=== PATIENT | male | born 1955 | race Caucasian/White ===

== ENCOUNTER → 2020-05-07 | Outpatient (CLI) | payer MEDICARE, OTHER, BC ==
[~2020-05-07] MED LIST: ASPIRIN EC81 MG PO; CATAPRES 0.1MG0.1 MG PO; COZAAR100 MG PO; CYCLOBENZAPRINE5 MG PO; FLOMAX 0.4 MG0.4 MG PO; HYDRALAZINE HCL50 MG PO; IBUPROFEN800 MG PO; LEVOTHYROXINE50 MC1 PO; MOBIC15 MG PO; NASAL SPRAY30 M2; NEURONTIN300 MG PO; OMEPRAZOLE20 MG PO; ONE-A-DAY MEN'1 EAC3 PO
== END ==
LOC: RAD 12:03
DX: G56.03 Carpal tunnel syndrome, bilateral upper limbs (principal); M79.641 Pain in right hand; M79.642 Pain in left hand; F44.4 Conversion disorder with motor symptom or deficit; G25.0 Essential tremor; R93.6 Abnormal findings on diagnostic imaging of limbs; M19.032 Primary osteoarthritis, left wrist
CPT/HCPCS: 73100

== ENCOUNTER 2020-07-12 20:22 | Observation (INO) | payer MEDICARE, OTHER ==
[~2020-07-12] VITALS: Ht 180.3 cm; Wt 114.5 kg
[2020-07-12 21:05] LABS: HEMOGLOBIN 16.9 gm/dl (14.0-17.5); RED BLOOD COUNT 5.2 M/UL (4.20-5.50); WHITE BLOOD COUNT 5.6 K/UL (4.5-11.0)
[2020-07-12 21:24] LABS: BUN/CREATININE RATIO 15 (0-10)
[2020-07-13] MEDS ORDERED: LEVOTHYROXINE50 MC1 PO (04:35)
[2020-07-13] MEDS ORDERED: COZAAR100 MG PO (04:35)
[2020-07-13] MEDS ORDERED: NEURONTIN300 MG PO (04:36)
[2020-07-13] MEDS ORDERED: NASAL SPRAY30 M2 (04:36)
[2020-07-13] MEDS ORDERED: FLOMAX 0.4 MG0.4 MG PO (04:37)
[2020-07-13] MEDS ORDERED: ASPIRIN EC81 MG PO (04:37)
[2020-07-13] MEDS ORDERED: OMEPRAZOLE20 MG PO (04:37)
[2020-07-13] MEDS ORDERED: IBUPROFEN800 MG PO (04:38)
[2020-07-13] MEDS ORDERED: ONE-A-DAY MEN'1 EAC3 PO (04:38)
[2020-07-13 05:48] LABS: HEMOGLOBIN 16.7 gm/dl (14.0-17.5); RED BLOOD COUNT 5.15 M/UL (4.20-5.50); WHITE BLOOD COUNT 4.9 K/UL (4.5-11.0)
[2020-07-13 06:09] LABS: BUN/CREATININE RATIO 13 (0-10)
[2020-07-13] MEDS ORDERED: HYDRALAZINE HCL50 MG PO (18:12)
== END 2020-07-13 19:07 | disposition home or self-care (01) ==
LOC: ER1 20:22 → CDU 07-13 00:41 → PROG CARE 07-13 00:41 → M/S 07-13 13:00
PROVIDERS: Physician Assistant; ADMIT Internal Medicine
DX: R07.89 Other chest pain (principal); I16.0 Hypertensive urgency; E87.6 Hypokalemia; K21.9 Gastro-esophageal reflux disease without esophagitis; N40.0 Benign prostatic hyperplasia without lower urinary tract symptoms; J30.2 Other seasonal allergic rhinitis; E66.9 Obesity, unspecified; I10 Essential (primary) hypertension; E03.9 Hypothyroidism, unspecified; E78.5 Hyperlipidemia, unspecified; Z20.822 Contact with and (suspected) exposure to COVID-19; Z98.890 Other specified postprocedural states; Z83.3 Family history of diabetes mellitus; Z79.82 Long term (current) use of aspirin; Z79.899 Other long term (current) drug therapy
CPT/HCPCS: ECHO; 71045; 80048; 80053; 82550; 82553; 83036; 83735; 83874; 83880; 84439; 84443; 84484; 84550; 85025; 85379; 93005; 93306; 96372; 96374; 96375; 96376; 99285; G0378; J1650; J1940; U0002

== ENCOUNTER 2020-07-18 14:45 | Emergency (ER) | payer MEDICARE, OTHER ==
[~2020-07-18 14:45] MED LIST changes: -CATAPRES 0.1MG0.1 MG PO; -CYCLOBENZAPRINE5 MG PO; -MOBIC15 MG PO
[2020-07-18 16:57] LABS: HEMOGLOBIN 17.2 gm/dl (14.0-17.5); RED BLOOD COUNT 5.27 M/UL (4.20-5.50); WHITE BLOOD COUNT 5.3 K/UL (4.5-11.0)
[2020-07-18 17:31] LABS: BUN/CREATININE RATIO 15 (0-10)
[2020-07-18] MEDS ORDERED: CATAPRES 0.1MG0.1 MG PO (18:08)
== END 2020-07-18 19:00 | disposition home or self-care (01) ==
LOC: ER1 14:45
PROVIDERS: Physician Assistant
DX: I10 Essential (primary) hypertension (principal); K21.9 Gastro-esophageal reflux disease without esophagitis; E03.9 Hypothyroidism, unspecified
CPT/HCPCS: 80053; 84439; 84443; 84484; 85025; 93005; 96374; 99283; J0360

== ENCOUNTER 2020-07-22 03:09 | Emergency (ER) | payer MEDICARE, OTHER ==
[~2020-07-22 03:09] MED LIST changes: +CATAPRES 0.1MG0.1 MG PO
[2020-07-22 04:18] LABS: HEMOGLOBIN 15.8 gm/dl (14.0-17.5); RED BLOOD COUNT 4.89 M/UL (4.20-5.50); WHITE BLOOD COUNT 4.7 K/UL (4.5-11.0)
[2020-07-22 04:47] LABS: BUN/CREATININE RATIO 13 (0-10)
== END 2020-07-22 05:38 | disposition home or self-care (01) ==
LOC: ER1 03:09
PROVIDERS: Family Medicine
DX: I10 Essential (primary) hypertension (principal); E03.9 Hypothyroidism, unspecified; R79.89 Other specified abnormal findings of blood chemistry
CPT/HCPCS: 80053; 82550; 82553; 83874; 84484; 85025; 93005; 99283

== ENCOUNTER 2020-10-17 13:41 | Emergency (ER) | payer MEDICARE, OTHER ==
[2020-10-17] MEDS ORDERED: MOBIC15 MG PO (15:58)
[2020-10-17] MEDS ORDERED: CYCLOBENZAPRINE5 MG PO (15:58)
== END 2020-10-17 16:12 | disposition home or self-care (01) ==
LOC: ER1 13:41
DX: S86.912A Strain of unspecified muscle(s) and tendon(s) at lower leg level, left leg, initial encounter (principal); I10 Essential (primary) hypertension; E03.9 Hypothyroidism, unspecified; W01.0XXA Fall on same level from slipping, tripping and stumbling without subsequent striking against object, initial encounter; Y92.009 Unspecified place in unspecified non-institutional (private) residence as the place of occurrence of the external cause
CPT/HCPCS: 29530; 73552; 99283

== ENCOUNTER → 2020-10-21 | Outpatient (CLI) | payer MEDICARE, OTHER ==
[~2020-10-21] MED LIST changes: +CYCLOBENZAPRINE5 MG PO; +MOBIC15 MG PO; +VIBRAMYCIN 100100 MG PO
== END ==
LOC: EMI 16:35
DX: S76.112A Strain of left quadriceps muscle, fascia and tendon, initial encounter (principal)
CPT/HCPCS: 73721

== ENCOUNTER 2020-12-19 15:51 | Emergency (ER) | payer MEDICARE, OTHER ==
[~2020-12-19 15:51] MED LIST changes: -VIBRAMYCIN 100100 MG PO
[2020-12-19] MEDS ORDERED: VIBRAMYCIN 100100 MG PO (21:05)
== END 2020-12-19 21:25 | disposition home or self-care (01) ==
LOC: ER1 15:51
DX: T81.31XA Disruption of external operation (surgical) wound, not elsewhere classified, initial encounter (principal); I10 Essential (primary) hypertension; E03.9 Hypothyroidism, unspecified
CPT/HCPCS: 12002; 29530; 73564; 99283

== ENCOUNTER 2021-05-11 07:44 | Emergency (ER) | payer OTHER ==
[~2021-05-11 07:44] MED LIST changes: +VIBRAMYCIN 100100 MG PO
== END 2021-05-11 09:58 | disposition home or self-care (01) ==
LOC: ER1 07:44
DX: S66.912A Strain of unspecified muscle, fascia and tendon at wrist and hand level, left hand, initial encounter (principal); S00.01XA Abrasion of scalp, initial encounter; M50.30 Other cervical disc degeneration, unspecified cervical region; Z23 Encounter for immunization; I10 Essential (primary) hypertension; W19.XXXA Unspecified fall, initial encounter
CPT/HCPCS: 70450; 72125; 73110; 90471; 90715; 99284

== ENCOUNTER 2021-11-06 03:09 | Emergency (ER) | payer MEDICARE, OTHER ==
[~2021-11-06 03:09] MED LIST changes: +CLARITIN5 MG PO; +FISH OIL; +HYDRALAZINE HC100 MG PO; +HYDROCHLOROTH12.5 MG PO; +VITAMIN B6
[2021-11-06 04:10] LABS: HEMOGLOBIN 17.4 gm/dl (14.0-17.5); RED BLOOD COUNT 5.41 M/UL (4.20-5.50); WHITE BLOOD COUNT 8.6 K/UL (4.5-11.0)
[2021-11-06 05:03] LABS: BUN/CREATININE RATIO 21 (0-10)
[2021-11-06] MEDS ORDERED: HYDROCODON-ACE1 EAC4 PO (06:35)
[2021-11-06] MEDS ORDERED: FLOMAX0.4 MG PO (06:41)
== END 2021-11-06 06:52 | disposition home or self-care (01) ==
LOC: ER1 03:09
PROVIDERS: Student in an Organized Health Care Education/Training Program
DX: N13.2 Hydronephrosis with renal and ureteral calculous obstruction (principal); Z87.442 Personal history of urinary calculi; I10 Essential (primary) hypertension; Z87.891 Personal history of nicotine dependence; Z79.899 Other long term (current) drug therapy
CPT/HCPCS: 80053; 81001; 85025; 96374; 99284; J1885